=== PATIENT | male | born 1955 | race Caucasian/White ===

== ENCOUNTER 2017-06-14 18:49 | Emergency (ER) | payer BC ==
[~2017-06-14] VITALS: Ht 162.6 cm; Wt 121.5 kg
[2017-06-14 18:55] VITALS: BP 168/75; PULSE 66; RESP 18; TEMP 97.5; O2SAT 97
[2017-06-14] MEDS ORDERED: BENA10TA PO (19:22)
[2017-06-14] MEDS ORDERED: CELE200C PO (19:22)
[2017-06-14] MEDS ORDERED: HYDR-3516 PO (19:22)
[2017-06-14] MEDS ORDERED: AMLO5TAB2 PO (19:22)
[2017-06-14] MEDS ORDERED: TAMS5CAP PO (19:22)
[2017-06-14] MEDS ORDERED: ORAC40CA PO (19:22)
[2017-06-14] MEDS ORDERED: FINA5TAB2 PO (19:22)
--- NOTE | 2017-06-14 19:27 | PD ---
HPI Chief Complaint: Skin Problem Time Seen by Provider: 19:22 Travel History International Travel<30 days: No Contact w/Intl Traveler<30days: No Traveled to known affect area: No History of Present Illness HPI Patient comes in for evaluation of a open wound on the plantar surface of his left foot lateral aspect. Patient states he first noticed it approximately 10 days ago after had soreness sensation around it. Patient has been trying to put antibiotic ointment on it and keep it covered however after flying in from [place] today he felt that it was more swollen and painful. Patient states he goes into a pole on a daily basis for therapy on his back. Patient reports having something similar in the past approximately 10 years ago. Patient denies any diabetes, fevers, or known injury. Patient states that his foot just cracked open. Patient is uncertain of his last tetanus shot. Denies diabetes. PFSH Past Medical History Diabetes: No ?: Not Social History Tobacco Use: No Substance Use: No Allergies-Medications (Allergen,Severity, Reaction): Coded Allergies: cefepime (Verified Allergy, Unknown, 06/14/17) Reported Meds & Prescriptions Reported Meds & Active Scripts Active Clindamycin (Clindamycin HCl) 300 Mg Cap 300 Mg PO Q6H 10 Days Bactrim DS (Sulfamethoxazole-Trimethoprim) 800-160 Mg Tab 1 Tab PO BID Reported Hydrocodone-Acetaminophen 5-325 mg Tab 1 Tab PO Q8HR PRN Benazepril-Hctz 10-12.5 mg Tab (Benazepril/Hydrochlorothiazide) 10 Mg-12.5 Mg Tablet 10-12.5 Mg PO DAILY Oracea (Doxycycline) 40 Mg Cap 40 Mg PO DAILY Celebrex (Celecoxib) 200 Mg Cap 200 Mg PO DAILY Amlodipine (Amlodipine Besylate) 5 Mg Tab 5 Mg PO DAILY Finasteride 5 Mg Tab 5 Mg PO DAILY Do not crush. Flomax (Tamsulosin HCl) 0.4 Mg Cap 0.4 Mg PO HS Review of Systems Except as stated in HPI: all other systems reviewed are Neg Physical Exam Narrative GENERAL: Well-developed, overly nourished, in no acute distress, and non-ill appearing. SKIN: Ulcer noted on the plantar surface of the left foot over the fifth metatarsal. Patient reports tenderness to palpation. There is no crepitus. Minimal erythematous. Afebrile. Without drainage. Neurovascularly intact distally. HEAD: Atraumatic. Normocephalic. EYES: Pupils equal and round. EOMI. No scleral icterus. No injection or drainage. ENT: No nasal bleeding or discharge. Mucous membranes pink and moist. NECK: Trachea midline. Supple. No nuclear rigidity. RESPIRATORY: No accessory muscle use. No respiratory distress. MUSCULOSKELETAL: No obvious deformities. No clubbing. No cyanosis. No edema. Full range of motion. NEUROLOGICAL: Awake and alert. No obvious cranial nerve deficits. Motor grossly within normal limits. Normal speech. PSYCHIATRIC: Appropriate mood and affect; insight and judgment normal. Data Data Last Documented VS Vital Signs Date Time Temp Pulse Resp B/P (MAP) Pulse Ox O2 Delivery O2 Flow Rate FiO2 06/14/17 18:55 97.5 66 18 168/75 (106) 97 Orders Orders Wound Culture And Gram Stain (06/14/17 19:22) Clindamycin Inj (Cleocin Inj) (06/14/17 19:30) Tetanus/Diphtheria Tox Adult (Tetanus/Di (06/14/17 19:30) Foot, Complete ([id number]) (06/14/17 ) Wound Care (06/14/17 20:20) Ed Discharge Order (06/14/17 20:32) MDM Medical Decision Making Medical Screen Exam Complete: Yes Emergency Medical Condition: Yes Differential Diagnosis Open wound, foot ulcer, osteomyelitis, wound infection, foreign body Narrative Course Patient in no obvious distress upon re-evaluation. All pertinent Radiology result(s) discussed with patient. Discussed patient with Dr. Gonzales prior to discharge, who saw and evaluated the patient and is in agreement with plan of care and disposition. Any questions/concerns in reference to patient diagnosis/ condition discussed and clarified prior to patient's discharge. Reinforced sheer importance of close follow up with ecg technician. Instructed patient to return to ED immediately, if symptoms return/worsen. Patient showed understanding of above instructions. Further instructions and recommendations were detailed in discharge paperwork. Patient ambulated without difficulty out of ED at discharge. Diagnosis Primary Impression: Foot ulcer, left Qualified Codes: L97.529 - Non-pressure chronic ulcer of other part of left foot with unspecified severity Referrals: Rory Avila DPM [facility] Patient Instructions: Acute Wound Care (DC), General Instructions Additional Instructions: Follow-up with ecg technician in 2-3 days for reevaluation. Take all medication as prescribed. Keep wound dry and clean as possible using soap and water. Use over -the-counter Neosporin. Follow instructions on the packaging. Do not soak or submerge wound. Return to the emergency department if symptoms get worse. Med/Other Pt SpecificInfo: Prescription(s) given Scripts Clindamycin (Clindamycin) 300 Mg Cap 300 MG PO Q6H for Infection for 10 Days, #40 CAP 0 Refills Prov: Santana Gonzales MD 06/14/17 Sulfamethoxazole-Trimethoprim (Bactrim DS) 800-160 Mg Tab 1 TAB PO BID for Infection, #20 TAB 0 Refills Prov: Santana Gonzales MD 06/14/17 Disposition: 01 DISCHARGE HOME Condition: Stable Joni Solano Jun 14, 2017 19:27
[2017-06-14] MEDS ORDERED: CLINDAMYCIN PHOS 600 MG/4 ML VIAL IM ONE (19:30)
[2017-06-14] MEDS ORDERED: TETANUS/DIPHTHERIA TOXOID ADULT 0.5 ML VIAL IM ONE (19:30)
--- NOTE | 2017-06-14 20:23 | RADRPT ---
EXAM DATE/TIME: 06/14/2017 19:57 [facility] COMPARISON: No previous studies available for comparison. INDICATIONS : Left planter surface foot pain with open wound. MEDICAL HISTORY : Hypertension. Enlarged prostate, Carpal tunnel, Chronic back pain SURGICAL HISTORY : Back surgery, Right foot surgery ENCOUNTER: Initial ACUITY: 1 week PAIN SCORE: 8/10 LOCATION: Left foot FINDINGS: Three view examination of the left foot demonstrates ulceration lateral foot. Remote fracture of the fifth metatarsal proximally. No bony destructive changes are noted. Vascular calcifications present. CONCLUSION: 1. Ulceration overlying the lateral foot. No acute bony abnormality. Juan Antonio Soria MD on June 14, 2017 at 20:20 Board Certified Radiologist. This report was verified electronically.
[2017-06-14] MEDS ORDERED: CLIN300C5 PO (20:29)
[2017-06-14] MEDS ORDERED: BACT800T5 PO (20:29)
== END 2017-06-14 20:56 | disposition home or self-care (01) ==
LOC: PHEFT 18:49
DX: L97.529 Non-pressure chronic ulcer of other part of left foot with unspecified severity (principal); B95.1 Streptococcus, group B, as the cause of diseases classified elsewhere; B96.4 Proteus (mirabilis) (morganii) as the cause of diseases classified elsewhere; Z16.39 Resistance to other specified antimicrobial drug; Z23 Encounter for immunization
CPT/HCPCS: 73630; 86403; 87070; 87077; 87186; 87205; 90471; 90714; 96372

== ENCOUNTER 2017-08-29 20:14 | Inpatient (IN) | payer BC ==
[~2017-08-29] VITALS: Ht 162.6 cm; Wt 122.0 kg
[~2017-08-29 20:14] MED LIST: AMLO5TAB2 PO; BACT800T5 PO; BENA10TA PO; CELE200C PO; CLIN300C5 PO; FINA5TAB2 PO; HYDR-3516 PO; ORAC40CA PO; TAMS5CAP PO
[2017-08-29 20:28] VITALS: BP 146/69; PULSE 108; RESP 20; TEMP 98.9; O2SAT 95
[2017-08-29] MEDS ORDERED: BENA20TA3 PO (21:44)
[2017-08-29] MEDS ORDERED: TETANUS/DIPHTHERIA TOXOID ADULT 0.5 ML VIAL IM ONE (22:00)
--- NOTE | 2017-08-29 22:05 | PD ---
HPI Chief Complaint: Fever Time Seen by Provider: 21:59 Travel History International Travel<30 days: No Contact w/Intl Traveler<30days: No Traveled to known affect area: No History of Present Illness HPI 62-year-old male presents to the emergency department for evaluation of shaking chill just prior to arrival to the emergency department with fever of 102. Patient states that he has a history of recurrent urinary tract infections due to prostate enlargement and multiple back surgeries and at times has to self catheterize himself. Patient denies burning with urination which is his typical indicator that he has a UTI. Patient did not get the flu vaccine but does not report any respiratory illness symptoms. Patient also is being followed by podiatry for a pressure ulcer of the left foot. Patient underwent debridement yesterday. Patient had infected pressure ulcer diagnosed May 2017 and was placed on clindamycin and Bactrim was referred to podiatry and they have him in a walking boot and intermittent episodes of debridement. Patient is currently not on any antibiotic. Patient denies being diabetic. PFSH Past Medical History Narrative Medical Hypertension, BPH, multiple back surgeries, rosacea, left foot cellulitis; occasional alcohol use: Nursing notes reviewed Diabetes: No Diminished Hearing: No Genitourinary: Yes (enlarged prostate) Hypertension: Yes Influenza Vaccination: No Past Surgical History Thoracic Surgery: Yes (multiple back ) Social History Alcohol Use: Yes (3-4 times a wk) Tobacco Use: No Substance Use: No Allergies-Medications (Allergen,Severity, Reaction): Coded Allergies: cefepime (Verified Allergy, Unknown, 08/29/17) Reported Meds & Prescriptions Reported Meds & Active Scripts Active Reported Benazepril-Hydrochlorothiazide 20-12.5 Mg Tab 1 Tab PO DAILY Hydrocodone-Acetaminophen 5-325 mg Tab 1 Tab PO Q8HR PRN Oracea (Doxycycline) 40 Mg Cap 40 Mg PO DAILY Celebrex (Celecoxib) 200 Mg Cap 200 Mg PO DAILY Amlodipine (Amlodipine Besylate) 5 Mg Tab 5 Mg PO DAILY Finasteride 5 Mg Tab 5 Mg PO DAILY Do not crush. Flomax (Tamsulosin HCl) 0.4 Mg Cap 0.4 Mg PO HS Review of Systems Except as stated in HPI: all other systems reviewed are Neg General / Constitutional: Positive: Fever, Chills HENT: No: Headaches, Sore Throat, Congestion, Neck Pain Cardiovascular: No: Chest Pain or Discomfort Respiratory: No: Cough, Shortness of Breath Gastrointestinal: No: Nausea, Vomiting, Diarrhea, Abdominal Pain Genitourinary: No: Frequency, Dysuria Musculoskeletal: Positive: Pain, No: Myalgias, Arthralgias Skin: Positive Other, No Rash Neurologic: Positive: Weakness, Dizziness, No: Syncope, Focal Abnormalities, Coordination Problem Psychiatric: No: Anxiety Endocrine: No: Heat Intolerance, Cold Intolerance Hematologic/Lymphatic: No: Easy Bruising Physical Exam Narrative GENERAL: Well-developed well-nourished morbidly obese male no acute distress no respiratory distress SKIN: Warm and dry. HEAD: Normocephalic. EYES: No scleral icterus. No injection or drainage. NECK: Supple, trachea midline. No JVD or lymphadenopathy. CARDIOVASCULAR: Increased regular rate and rhythm without murmurs, gallops, or rubs. RESPIRATORY: Breath sounds equal bilaterally. No accessory muscle use. GASTROINTESTINAL: Abdomen soft, non-tender, nondistended. MUSCULOSKELETAL: No cyanosis, or edema. Plantar surface left foot lateral aspect reveals a 1 cm x 1 cm area of macerated tissue with central ulcer scant serous drainage no purulent drainage tender to palpation erythema capillary refill brisk at less than 2 seconds per digit dorsalis pedis pulse 1+ to palpation. No ascending erythema or left groin lymphadenopathy. BACK: Nontender without obvious deformity. No CVA tenderness. Data Data Last Documented VS Vital Signs Date Time Temp Pulse Resp B/P (MAP) Pulse Ox O2 Delivery O2 Flow Rate FiO2 08/29/17 22:45 87 18 120/68 (85) 97 Room Air 08/29/17 20:28 98.9 Orders Orders Basic Metabolic Panel (Bmp) (08/29/17 21:59) Complete Blood Count With Diff (08/29/17 21:59) Blood Culture (08/29/17 21:59) Wound Culture And Gram Stain (08/29/17 21:59) Iv Access Insert/Monitor (08/29/17 21:59) Tetanus/Diphtheria Tox Adult (Tetanus/Di (08/29/17 22:00) Lactic Acid (08/29/17 21:59) Influenzae A/B Antigen (08/29/17 21:59) Foot, Complete ([id number]) (08/29/17 ) Chest, Single Ap (08/29/17 ) Urinalysis - C+S If Indicated (08/29/17 23:36) Oseltamivir (Tamiflu) (08/29/17 23:45) Sodium Chlor 0.9% 1000 Ml Inj (Ns 1000 M (08/29/17 23:45) Vancomycin Inj (Vancomycin Inj) (08/29/17 23:45) Admit To Inpatient (08/29/17 ) Vital Signs (Adult) Q4H (08/29/17 23:53) Activity Oob With Assistance (08/29/17 23:53) Intake + Output MIRELA.QSHIFT (08/29/17 23:53) Diet Heart Healthy (08/30/17 Breakfast) Sodium Chlor 0.45% 1000 Ml Inj (1/2 Ns 1 (08/29/17 23:53) Sodium Chloride 0.9% Flush (Ns Flush) (08/30/17 00:00) Sodium Chloride 0.9% Flush (Ns Flush) (08/30/17 09:00) Acetaminophen (Tylenol) (08/30/17 00:00) Ondansetron Inj (Zofran Inj) (08/30/17 00:00) Temazepam (Restoril) (08/30/17 00:00) Basic Metabolic Panel (Bmp) (08/30/17 06:00) Complete Blood Count With Diff (08/30/17 06:00) Scd Bilateral/Knee High MIRELA.BID (08/29/17 23:53) Naloxone Inj (Narcan Inj) (08/30/17 00:00) Magnesium Hydroxide Liq (Milk Of Magnesi (08/30/17 00:00) Sennosides (Senokot) (08/30/17 00:00) Bisacodyl Supp (Dulcolax Supp) (08/30/17 00:00) Lactulose Liq (Lactulose Liq) (08/30/17 00:00) Inpatient Certification (08/29/17 ) Vancomycin Consult Pharmacy (Vancomycin (08/30/17 00:00) Vancomycin Inj (Vancomycin Inj) (08/30/17 09:00) Admit Order (Ed Use Only) (08/29/17 ) Labs Laboratory Tests Test 08/29/17 22:07 White Blood Count 21.9 TH/MM3 Red Blood Count 4.67 MIL/MM3 Hemoglobin 13.9 GM/DL Hematocrit 40.9 % Mean Corpuscular Volume 87.4 FL Mean Corpuscular Hemoglobin 29.6 PG Mean Corpuscular Hemoglobin Concent 33.9 % Red Cell Distribution Width 12.8 % Platelet Count 168 TH/MM3 Mean Platelet Volume 9.3 FL Neutrophils (%) (Auto) 88.9 % Lymphocytes (%) (Auto) 2.2 % Monocytes (%) (Auto) 5.7 % Eosinophils (%) (Auto) 0.9 % Basophils (%) (Auto) 2.3 % Neutrophils # (Auto) 19.5 TH/MM3 Lymphocytes # (Auto) 0.5 TH/MM3 Monocytes # (Auto) 1.2 TH/MM3 Eosinophils # (Auto) 0.2 TH/MM3 Basophils # (Auto) 0.5 TH/MM3 CBC Comment DIFF FINAL Differential Comment Blood Urea Nitrogen 27 MG/DL Creatinine 1.50 MG/DL Random Glucose 165 MG/DL Calcium Level 9.2 MG/DL Sodium Level 134 MEQ/L Potassium Level 4.1 MEQ/L Chloride Level 101 MEQ/L Carbon Dioxide Level 25.7 MEQ/L Anion Gap 7 MEQ/L Estimat Glomerular Filtration Rate 47 ML/MIN Lactic Acid Level 0.9 mmol/L MDM Medical Decision Making Medical Screen Exam Complete: Yes Emergency Medical Condition: Yes Medical Record Reviewed: Yes Interpretation(s) Influenza a/b ag: positive 'A' Lactic acid: 0.9, not elevated Last Impressions Foot X-Ray 08/29/17 0000 Signed Impressions: Service Date/Time: August 22:12 - CONCLUSION: The configuration of the deformed proximal 5th metatarsal bone adjacent to soft tissue ulceration is unchanged from prior conventional radiograph in May 2017. Rod Padilla MD Chest X-Ray 08/29/17 0000 Signed Impressions: Service Date/Time: August 22:12 - CONCLUSION: No infiltrates seen. Rod Padilla MD CBC & BMP Diagram 08/29/17 22:07 Calcium Level 9.2 Vital Signs Date Time Temp Pulse Resp B/P (MAP) Pulse Ox O2 Delivery O2 Flow Rate FiO2 08/29/17 22:45 87 18 120/68 (85) 97 Room Air 08/29/17 20:28 98.9 108 20 146/69 (94) 95 Room Air Differential Diagnosis Cellulitis, osteomyelitis, sepsis, UTI, abscess, pneumonia; no necrotizing fasciitis Narrative Course IV access obtained specimens collected and sent for resulting Patient identified to have leukocytosis with left shift lactic acid is in normal range; patient meets SIRS criteria by heart rate and leukocytosis and by report of fever 10 2F Patient with positive flu test patient meets sepsis criteria based on source as well as leukocytosis and tachycardia imaging of the left foot reveals no acute bony abnormality possible cellulitis of foot versus wound infection will give patient vancomycin and 1 L normal saline; UA pending Plan admit to [facility] service for sepsis, influenza --patient agreeable with plan Sepsis Criteria SIRS Criteria (2 or more): Heart rate over 90, WBC > 88919, < 4000 or > 10% bands Sepsis Criteria (SIRS+source): Infect source susp/known (influenza A; left foot ) Physician Communication Physician Communication call placed to [facility] service --discussed with Dr Singh Diagnosis Primary Impression: Influenza A Additional Impressions: Sepsis Qualified Codes: A41.9 - Sepsis, unspecified organism Infection of left foot Renal insufficiency Admitting Information Admitting Physician Requests: Observation Courtney Salguero MD Aug 29, 2017 22:05
[2017-08-29 22:23] LABS: AUTOMATED NEUTROPHIL # 19.5 TH/MM3 (1.8-7.7); BASOPHIL # 0.5 TH/MM3 (0-0.2); BASOPHIL % 2.3 % (0.0-2.0); EOSINOPHIL # 0.2 TH/MM3 (0-0.4); EOSINOPHIL % 0.9 % (0.0-4.0); HEMATOCRIT 40.9 % (39.0-51.0); HEMOGLOBIN 13.9 GM/DL (13.0-17.0); LYMPH % 2.2 % (9.0-44.0); LYMPHOCYTE # 0.5 TH/MM3 (1.0-4.8); MEAN CELL VOLUME 87.4 FL (80.0-100.0); MEAN CORPUSCULAR HEMOGLOBIN 29.6 PG (27.0-34.0); MEAN CORPUSCULAR HGB CONC 33.9 % (32.0-36.0); MEAN PLATELET VOLUME 9.3 FL (7.0-11.0); MONO % 5.7 % (0.0-8.0); MONOCYTE # 1.2 TH/MM3 (0-0.9); NEUT % 88.9 % (16.0-70.0); PLATELET COUNT 168 TH/MM3 (150-450); RED BLOOD COUNT 4.67 MIL/MM3 (4.50-5.90); RED CELL DISTRIBUTION WIDTH 12.8 % (11.6-17.2); WHITE BLOOD COUNT 21.9 TH/MM3 (4.0-11.0)
[2017-08-29 22:36] LABS: CALCIUM 9.2 MG/DL (8.5-10.1)
[2017-08-29 22:37] LABS: BICARBONATE 25.7 MEQ/L (21.0-32.0)
[2017-08-29 22:40] LABS: CREATININE 1.5 MG/DL (0.60-1.30)
[2017-08-29 22:45] VITALS: BP 120/68; PULSE 87; RESP 18; O2SAT 97
--- NOTE | 2017-08-29 23:04 | RADRPT ---
EXAM DATE/TIME: 08/29/2017 22:12 [facility] COMPARISON: FOOT LEFT COMPLETE ([id number]), June 14, 2017, 19:57. INDICATIONS : Patient states he has a "pressure" ulcer on his left foot that is painful. MEDICAL HISTORY : Hypertension. Enlarged prostate, Carpal tunnel, Chronic back pain SURGICAL HISTORY : Back surgery, Right foot surgery ENCOUNTER: Initial ACUITY: 4 - 6 months PAIN SCORE: 6/10 LOCATION: Left foot FINDINGS: Focal lucency in the soft tissues the proximal lateral 5th digit corresponds to an area of ulceration seen on prior compression radiograph of May 2017. No radiopaque foreign bodies. Deformity of the proximal 5th metatarsal bone with cortical thickening and bowing of the proximal cortex is simila r to prior examination. Focal periosteal thickening of the lateral cortex of the distal metatarsus i s also unchanged from prior. Moderate-sized retrocalcaneal spur stop flexion deformity of the phalan ges similar to prior. CONCLUSION: The configuration of the deformed proximal 5th metatarsal bone adjacent to soft tissue ulceration is unchanged from prior conventional radiograph in May 2017. Rod Padilla MD on August 29, 2017 at 23:00 Board Certified Radiologist. This report was verified electronically.
--- NOTE | 2017-08-29 23:05 | RADRPT ---
EXAM DATE/TIME: 08/29/2017 22:12 [facility] COMPARISON: No previous studies available for comparison. INDICATIONS : Fever and shortness of breath. MEDICAL HISTORY : Hypertension. Enlarged prostate, Carpal tunnel, Chronic back pain. SURGICAL HISTORY : Back surgery, Right foot surgery ENCOUNTER: Initial ACUITY: 1 day PAIN SCORE: 0/10 LOCATION: Bilateral chest FINDINGS: A single view of the chest demonstrates the lungs to be symmetrically aerated without evidence of mas s, infiltrate or effusion. The heart is normal size. Mild tortuosity descending thoracic aorta.. O sseous structures are intact. CONCLUSION: No infiltrates seen. Rod Padilla MD on August 29, 2017 at 23:04 Board Certified Radiologist. This report was verified electronically.
[2017-08-29] MEDS ORDERED: VANCOMYCIN INJ 1,000 MG in SODIUM CHLOR 0.9% 250 ML INJ 250 ML IV ONE (23:45)
[2017-08-29] MEDS ORDERED: SODIUM CHLOR 0.9% 1000 ML INJ 1,000 ML IV ONE (23:45)
[2017-08-29] MEDS ORDERED: OSELTAMIVIR PHOSPHATE 75 MG CAP PO ONE (23:45)
[2017-08-29 23:48] LABS: BILIRUBIN, URINE NEG (NEG); BLOOD, URINE NEG (NEG); GLUCOSE,URINE NEG (NEG); KETONE, URINE NEG (NEG); NITRITE,URINE POS (NEG); PH, URINE 5.5 (5.0-8.5); URINE COLOR YELLOW (YELLW/STRAW); URINE LEUKOCYTE ESTERASE SMALL (NEG)
[2017-08-29] MEDS ORDERED: SODIUM CHLOR 0.45% 1000 ML INJ 1,000 ML IV SCH (23:53)
[2017-08-29 23:58] LABS: RBC, URINE 0-2 /hpf (0-3)
[2017-08-29 23:59] LABS: BACTERIA, URINE MOD /hpf; SQUAMOUS EPITHELIAL CELL URINE 0-5 /hpf (0-5)
[2017-08-30] VITALS (8 sets, daily range): BP systolic 112–141; BP diastolic 59–71; PULSE 62–87; RESP 18–20; TEMP 96.7–98.9; O2SAT 95–100
[2017-08-30] MEDS ORDERED: ONDANSETRON HCL 4 MG/2 ML VIAL IVP PRN
[2017-08-30] MEDS ORDERED: SENNOSIDES 8.6 MG TAB PO PRN
[2017-08-30] MEDS ORDERED: Vancomycin Consult Pharmacy 1 EA OTHER SCH
[2017-08-30] MEDS ORDERED: SODIUM CHLORIDE 0.9% FLUSH 10 ML FLUSH IV FLUSH PRN
[2017-08-30] MEDS ORDERED: TEMAZEPAM 15 MG CAP PO PRN
[2017-08-30] MEDS ORDERED: MAGNESIUM HYDROXIDE SUSP 30 ML CUP PO PRN
[2017-08-30] MEDS ORDERED: BISACODYL 10 MG SUPP RECTAL PRN
[2017-08-30] MEDS ORDERED: LACTULOSE SYRUP 20 GM/30 ML CUP PO PRN
[2017-08-30] MEDS ORDERED: VANCOMYCIN INJ 1,000 MG in SODIUM CHLOR 0.9% 250 ML INJ 250 ML IV SCH ×2 (00:30→01:00)
[2017-08-30] MEDS ORDERED: LEVOFLOXACIN 500 MG TAB PO ONE (00:45)
[2017-08-30 06:44] LABS: AUTOMATED NEUTROPHIL # 15.6 TH/MM3 (1.8-7.7); BASOPHIL % 0.2 % (0.0-2.0); EOSINOPHIL # 0.1 TH/MM3 (0-0.4); EOSINOPHIL % 0.3 % (0.0-4.0); HEMATOCRIT 36.8 % (39.0-51.0); HEMOGLOBIN 12.8 GM/DL (13.0-17.0); LYMPH % 1.5 % (9.0-44.0); LYMPHOCYTE # 0.3 TH/MM3 (1.0-4.8); MEAN CORPUSCULAR HEMOGLOBIN 30.7 PG (27.0-34.0); MEAN CORPUSCULAR HGB CONC 34.8 % (32.0-36.0); MEAN PLATELET VOLUME 9.2 FL (7.0-11.0); MONO % 4.3 % (0.0-8.0); MONOCYTE # 0.7 TH/MM3 (0-0.9); NEUT % 93.7 % (16.0-70.0); PLATELET COUNT 128 TH/MM3 (150-450); RED BLOOD COUNT 4.18 MIL/MM3 (4.50-5.90); RED CELL DISTRIBUTION WIDTH 12.8 % (11.6-17.2); WHITE BLOOD COUNT 16.7 TH/MM3 (4.0-11.0)
[2017-08-30 06:48] LABS: BICARBONATE 26.4 MEQ/L (21.0-32.0); CALCIUM 8.7 MG/DL (8.5-10.1)
[2017-08-30 06:51] LABS: CREATININE 1.4 MG/DL (0.60-1.30)
--- NOTE | 2017-08-30 08:58 | HHI.HP ---
[facility] Service [facility] Primary Care Physician Non-Staff Admission Diagnosis sepsis; influenza a; reanl insufficiency; L foot cellulitis Diagnoses: Chief Complaint: Chills fever Travel History International Travel<30 Days: No Contact w/Intl Traveler <30 Da: No Traveled to Known Affected Are: No History of Present Illness 62-year-old white male with a history of hypertension, BPH, chronic left foot pressure ulcer in which he independently does ambulate with a cane who presents to the emergency room after having 102 fever and chills overnight along with generalized muscle aches. He also reports having a large prostate along with history of multiple back surgery requiring self-catheterization in the morning and at night. He denies any dysuria or increased urinary dribbling. He does report early sinus congestion with no symptoms of cough. He also reports having left chronic callus debrided 2 days ago with local online media director but no active drainage or changes over the area. He denies any recent sick contacts. Review of Systems Constitutional: COMPLAINS OF: Fever, Chills, DENIES: Fatigue, Change in appetite Endocrine: DENIES: Heat/cold intolerance Eyes: DENIES: Blurred vision, Eye pain, Vision loss Ears, nose, mouth, throat: COMPLAINS OF: Nasal discharge, Running Nose, DENIES : Hearing loss, Throat pain, Ear Pain, Sinus Pain Respiratory: DENIES: Cough, Shortness of breath Cardiovascular: DENIES: Chest pain, Palpitations, Dyspnea on Exertion, Lower Extremity Edema Gastrointestinal: DENIES: Abdominal pain, Black stools, Bloody stools, Constipation, Diarrhea, Nausea, Vomiting Genitourinary: COMPLAINS OF: Urinary incontinence (Chronic and does self catheterizations) Musculoskeletal: COMPLAINS OF: Joint pain, Muscle aches, Back pain, DENIES: Stiffness Integumentary: DENIES: Rash Hematologic/lymphatic: DENIES: Bruising, Lymphadenopathy Immunologic/allergic: DENIES: Eczema Neurologic: DENIES: Headache, Localized weakness, Paresthesias Psychiatric: DENIES: Anxiety, Depression, Suicidal Ideation Past Family Social History Past Medical History Hypertension BPH Rosacea chronic left plantar pressure ulcer, callus Left foot drop secondary to previous multiple laminectomies Past Surgical History Multiple laminectomies Right foot surgery Bilateral carpal tunnel surgery Reported Medications Benazepril-Hydrochlorothiazide 20-12.5 Mg Tab 1 Tab PO DAILY Hydrocodone-Acetaminophen 5-325 mg Tab 1 Tab PO Q8HR PRN Oracea (Doxycycline) 40 Mg Cap 40 Mg PO DAILY Celebrex (Celecoxib) 200 Mg Cap 200 Mg PO DAILY Amlodipine (Amlodipine Besylate) 5 Mg Tab 5 Mg PO DAILY Finasteride 5 Mg Tab 5 Mg PO DAILY Do not crush. Flomax (Tamsulosin HCl) 0.4 Mg Cap 0.4 Mg PO HS Allergies: Coded Allergies: cefepime (Verified Allergy, Unknown, 08/29/17) Family History Mother - diabetes mellitus Social History Does not smoke cigarettes Drinks beer 2-3 times a week Physical Exam Vital Signs Vital Signs Date Time Temp Pulse Resp B/P (MAP) Pulse Ox O2 Delivery O2 Flow Rate FiO2 08/30/17 08:00 98.9 75 20 141/65 (90) 95 08/30/17 04:00 98.0 87 20 116/59 (78) 99 08/30/17 01:30 97.0 79 20 112/68 (83) 98 08/30/17 01:10 08/30/17 00:50 98.7 76 18 116/60 (78) 99 Room Air 08/30/17 00:05 84 18 129/71 (90) 97 Room Air 08/29/17 22:45 87 18 120/68 (85) 97 Room Air 08/29/17 20:28 98.9 108 20 146/69 (94) 95 Room Air Physical Exam GENERAL: This is a well-nourished, well-developed patient, in no apparent distress. SKIN: No rashes, ecchymoses or lesions. Cool and dry. HEAD: Atraumatic. Normocephalic. No temporal or scalp tenderness. EYES: Pupils equal round and reactive. Extraocular motions intact. No scleral icterus. No injection or drainage. ENT: Nose without bleeding, purulent drainage or septal hematoma. Throat without erythema, tonsillar hypertrophy or exudate. Uvula midline. Airway patent. NECK: Trachea midline. No JVD or lymphadenopathy. Supple, nontender, no meningeal signs. CARDIOVASCULAR: Regular rate and rhythm RESPIRATORY: Clear to auscultation. Breath sounds equal bilaterally. No wheezes , rales, or rhonchi. GASTROINTESTINAL: Abdomen soft, non-tender, nondistended. No hepato-splenomegaly , or palpable masses. No guarding. Normoactive bowel sounds. MUSCULOSKELETAL: Extremities without clubbing, cyanosis, or edema. Left foot plantar with callus 2 cm x 3 cm clean ulcer with no redness and no active drainage. Surgical scarring of the lumbar area NEUROLOGICAL: Awake and alert to person, place, time, and situation. Cranial nerves II through XII intact. Motor and sensory grossly within normal limits. Five out of 5 muscle strength in all muscle groups. Normal speech. Laboratory Microbiology Date/Time Source Procedure Growth Status 08/29/17 22:16 Blood Peripheral Aerobic Blood Culture Pending Received 08/29/17 22:16 Blood Peripheral Anaerobic Blood Culture Pending Received 08/29/17 22:07 Nasal Washing Influenza Types A,B Antigen (ROBI) - Final Positive For Flu A Antigen Complete 08/29/17 23:40 Urine Clean Catch Urine Culture Pending Received 08/29/17 22:07 Wound Foot Gram Stain Pending Received 08/29/17 22:07 Wound Foot Wound Culture Pending Received Laboratory Tests Test 08/29/17 22:07 08/29/17 23:40 08/30/17 05:55 White Blood Count 21.9 16.7 Red Blood Count 4.67 4.18 Hemoglobin 13.9 12.8 Hematocrit 40.9 36.8 Mean Corpuscular Volume 87.4 88.0 Mean Corpuscular Hemoglobin 29.6 30.7 Mean Corpuscular Hemoglobin Concent 33.9 34.8 Red Cell Distribution Width 12.8 12.8 Platelet Count 168 128 Mean Platelet Volume 9.3 9.2 Neutrophils (%) (Auto) 88.9 93.7 Lymphocytes (%) (Auto) 2.2 1.5 Monocytes (%) (Auto) 5.7 4.3 Eosinophils (%) (Auto) 0.9 0.3 Basophils (%) (Auto) 2.3 0.2 Neutrophils # (Auto) 19.5 15.6 Lymphocytes # (Auto) 0.5 0.3 Monocytes # (Auto) 1.2 0.7 Eosinophils # (Auto) 0.2 0.1 Basophils # (Auto) 0.5 0.0 CBC Comment DIFF FINAL AUTO DIFF Differential Comment AUTO DIFF CONFIRMED Blood Urea Nitrogen 27 25 Creatinine 1.50 1.40 Random Glucose 165 143 Calcium Level 9.2 8.7 Sodium Level 134 138 Potassium Level 4.1 3.7 Chloride Level 101 105 Carbon Dioxide Level 25.7 26.4 Anion Gap 7 7 Estimat Glomerular Filtration Rate 47 51 Lactic Acid Level 0.9 Urine Color YELLOW Urine Turbidity CLEAR Urine pH 5.5 Urine Specific [place] LESS/EQUAL 1.005 Urine Protein NEG Urine Glucose (UA) NEG Urine Ketones NEG Urine Occult Blood NEG Urine Nitrite POS Urine Bilirubin NEG Urine Urobilinogen 0.2 Urine Leukocyte Esterase SMALL Urine RBC 0-2 Urine WBC 9-14 Urine Squamous Epithelial Cells 0-5 Urine Bacteria MOD Microscopic Urinalysis Comment CULTURE INDICATED Date/Time Source Procedure Growth Status 08/29/17 22:16 Blood Peripheral Aerobic Blood Culture Pending Received 08/29/17 22:16 Blood Peripheral Anaerobic Blood Culture Pending Received 08/29/17 22:07 Nasal Washing Influenza Types A,B Antigen (ROBI) - Final Positive For Flu A Antigen Complete 08/29/17 23:40 Urine Clean Catch Urine Culture Pending Received 08/29/17 22:07 Wound Foot Gram Stain Pending Received 08/29/17 22:07 Wound Foot Wound Culture Pending Received Result Diagram: 08/30/17 0555 08/30/17 0555 Imaging Last Impressions Foot X-Ray 08/29/17 0000 Signed Impressions: Service Date/Time: August 22:12 - CONCLUSION: The configuration of the deformed proximal 5th metatarsal bone adjacent to soft tissue ulceration is unchanged from prior conventional radiograph in May 2017. Rod Padilla MD Chest X-Ray 08/29/17 0000 Signed Impressions: Service Date/Time: August 22:12 - CONCLUSION: No infiltrates seen. Rod Padilla MD Caprini VTE Risk Assessment Caprini VTE Risk Assessment: Mod/High Risk (score >= 2) Caprini Risk Assessment Model Point Value = 1 Point Value = 2 Point Value = 3 Point Value = 5 Age 41-60 Minor surgery BMI > 25 kg/m2 Swollen legs Varicose veins or History of unexplained or recurrent spontaneous Oral contraceptives or hormone replacement Sepsis (< 1 month) Serious lung disease, including pneumonia (< 1 month) Abnormal pulmonary function Acute myocardial infarction Congestive heart failure (< 1 month) History of inflammatory bowel disease Medical patient at bed rest Age 61-74 Arthroscopic surgery Major open surgery (> 45 min) Laparoscopic surgery (> 45 min) Malignancy Confined to bed (> 72 hours) Immobilizing plaster cast Central venous access Age >= 75 History of VTE Family history of VTE Factor V Leiden Prothrombin [id number] Lupus anticoagulant Anticardiolipin antibodies Elevated serum homocysteine Heparin-induced thrombocytopenia Other congenital or acquired thrombophilia Stroke (< 1 month) Elective arthroplasty Hip, pelvis, or leg fracture Acute spinal cord injury (< 1 month) Prophylaxis Regimen Total Risk Factor Score Risk Level Prophylaxis Regimen 0-1 Low Early ambulation 2 Moderate Order ONE of the following: *Sequential Compression Device (SCD) *Heparin 5000 units SQ BID 3-4 Higher Order ONE of the following medications: *Heparin 5000 units SQ TID *Enoxaparin/Lovenox 40 mg SQ daily (WT < 150 kg, CrCl > 30 mL/min) *Enoxaparin/Lovenox 30 mg SQ daily (WT < 150 kg, CrCl > 10-29 mL/min) *Enoxaparin/Lovenox 30 mg SQ BID (WT < 150 kg, CrCl > 30 mL/min) AND/OR *Sequential Compression Device (SCD) 5 or more Highest Order ONE of the following medications: *Heparin 5000 units SQ TID (Preferred with Epidurals) *Enoxaparin/Lovenox 40 mg SQ daily (WT < 150 kg, CrCl > 30 mL/min) *Enoxaparin/Lovenox 30 mg SQ daily (WT < 150 kg, CrCl > 10-29 mL/min) *Enoxaparin/Lovenox 30 mg SQ BID (WT < 150 kg, CrCl > 30 mL/min) AND *Sequential Compression Device (SCD) Assessment and Plan Problem List: (1) Sepsis ICD Code: A41.9 - Sepsis, unspecified organism Status: Acute (2) CKD (chronic kidney disease), stage III ICD Code: N18.3 - Chronic kidney disease, stage 3 (moderate) Status: Chronic (3) Influenza A ICD Code: J10.1 - Influenza due to other identified influenza virus with other respiratory manifestations Status: Acute Assessment and Plan 1. Sepsis with presenting tachycardia and leukocytosis on admission likely etiology underlying influenza, rule out underlying urinary tract infection. Evaluation of his chronic left pressure ulcer showed no active drainage or any signs of infection. Continue with Tamiflu and Levaquin. Continue IV fluid hydration and supportive care. Follow up with urine and blood cultures. 2. Leukocytosis on admission - trending down overnight with supportive care antibiotics. 3. Chronic kidney disease stage III- chronic and stable; avoid nephrotoxins. 4. Influenza - Tamiflu 5. History of urinary retention with daily self-catheterization which puts him at risk for urinary tract infection and continue home Flomax. Follow-up with urine cultures. 6. DVT prophylaxis Lovenox. Physician Certification 2 Midnight Certification Type: Admission for Inpatient Services Order for Inpatient Services The services are ordered in accordance with Medicare regulations or non- Medicare payer requirements, as applicable. In the case of services not specified as inpatient-only, they are appropriately provided as inpatient services in accordance with the 2-midnight benchmark. Estimated LOS (days): 2 days is the estimated time the patient will need to remain in the hospital, assuming treatment plan goals are met and no additional complications. Post-Hospital Plan: Home Problem Qualifiers (1) Sepsis: Qualified Codes: A41.9 - Sepsis, unspecified organism Cherelle Gutierrez MD Aug 30, 2017 08:58
[2017-08-30] MEDS ORDERED: NALOXONE HCL 0.4 MG/ML AMP IV PUSH PRN ×2 (09:00)
[2017-08-30] MEDS ORDERED: ACETAMINOPHEN/HYDROcodone 325 MG/5 MG TAB PO PRN (09:00)
[2017-08-30] MEDS ORDERED: ACETAMINOPHEN 325 MG TAB PO PRN ×2 (09:00)
[2017-08-30] MEDS ORDERED: DOXYCYCLINE PO SCH (09:15)
[2017-08-30] MEDS: ACETAMINOPHEN/HYDROcodone 325 MG/10 MG TAB PO PRN (11:59)
[2017-08-30] MEDS: ENOXAPARIN SODIUM 40 MG/0.4 ML SYRINGE SQ SCH (11:59)
[2017-08-30] MEDS: SODIUM CHLORIDE 0.9% FLUSH 10 ML FLUSH IV FLUSH SCH ×2 (12:04→20:32)
[2017-08-30] MEDS: CELECOXIB 200 MG CAP PO SCH (12:08)
[2017-08-30] MEDS: FINASTERIDE 5 MG TAB PO SCH (12:08)
[2017-08-30] MEDS: amLODIPine BESYLATE 5 MG TAB PO SCH (12:08)
[2017-08-30] MEDS: OSELTAMIVIR PHOSPHATE 75 MG CAP PO SCH ×2 (12:09→20:31)
[2017-08-30] MEDS ORDERED: TAMSULOSIN HCL 0.4 MG CAP PO SCH (21:00)
[2017-08-31] VITALS: BP 118/62; PULSE 66; RESP 20; TEMP 97.4; O2SAT 98
[2017-08-31] MEDS ORDERED: VANCOMYCIN INJ 2,100 MG in SODIUM CHLORID 0.9% 500 ML INJ 500 ML IV SCH ×2
[2017-08-31] MEDS: ACETAMINOPHEN/HYDROcodone 325 MG/10 MG TAB PO PRN ×2 (03:30→08:50)
[2017-08-31 07:28] LABS: AUTOMATED NEUTROPHIL # 6.1 TH/MM3 (1.8-7.7); BASOPHIL % 0.3 % (0.0-2.0); EOSINOPHIL # 0.3 TH/MM3 (0-0.4); EOSINOPHIL % 4.5 % (0.0-4.0); HEMATOCRIT 36.2 % (39.0-51.0); HEMOGLOBIN 12.6 GM/DL (13.0-17.0); LYMPH % 7.2 % (9.0-44.0); LYMPHOCYTE # 0.5 TH/MM3 (1.0-4.8); MEAN CELL VOLUME 89.6 FL (80.0-100.0); MEAN CORPUSCULAR HEMOGLOBIN 31.1 PG (27.0-34.0); MEAN CORPUSCULAR HGB CONC 34.7 % (32.0-36.0); MEAN PLATELET VOLUME 9.1 FL (7.0-11.0); MONOCYTE # 0.5 TH/MM3 (0-0.9); PLATELET COUNT 131 TH/MM3 (150-450); RED BLOOD COUNT 4.04 MIL/MM3 (4.50-5.90); RED CELL DISTRIBUTION WIDTH 13.8 % (11.6-17.2); WHITE BLOOD COUNT 7.4 TH/MM3 (4.0-11.0)
[2017-08-31 08:01] LABS: CREATININE 1.2 MG/DL (0.60-1.30)
[2017-08-31] MEDS: SODIUM CHLORIDE 0.9% FLUSH 10 ML FLUSH IV FLUSH SCH (08:49)
[2017-08-31] MEDS: ENOXAPARIN SODIUM 40 MG/0.4 ML SYRINGE SQ SCH (08:49)
[2017-08-31] MEDS: amLODIPine BESYLATE 5 MG TAB PO SCH (08:50)
[2017-08-31] MEDS: CELECOXIB 200 MG CAP PO SCH (08:50)
[2017-08-31] MEDS: FINASTERIDE 5 MG TAB PO SCH (08:50)
[2017-08-31] MEDS ORDERED: LEVOFLOXACIN 500 MG TAB PO SCH (09:00)
[2017-08-31] MEDS: OSELTAMIVIR PHOSPHATE 75 MG CAP PO SCH (09:00)
[2017-08-31 09:05] VITALS: BP 135/79; PULSE 85; RESP 18; TEMP 96.9; O2SAT 97
--- NOTE | 2017-08-31 10:01 | HHI.DS ---
Discharge Summary Admission Date Aug 29, 2017 at 23:55 Discharge Date: Aug 31, 2017 Admitting Diagnosis sepsis; influenza a; reanl insufficiency; L foot cellulitis (1) Sepsis ICD Code: A41.9 - Sepsis, unspecified organism Status: Acute (2) CKD (chronic kidney disease), stage III ICD Code: N18.3 - Chronic kidney disease, stage 3 (moderate) Status: Chronic (3) Influenza A ICD Code: J10.1 - Influenza due to other identified influenza virus with other respiratory manifestations Status: Acute (4) Urinary tract infection ICD Code: N39.0 - Urinary tract infection, site not specified Procedures None Brief History - From Admission 62-year-old white male with a history of hypertension, BPH, chronic left foot pressure ulcer in which he independently does ambulate with a cane who presents to the emergency room after having 102 fever and chills overnight along with generalized muscle aches. He also reports having a large prostate along with history of multiple back surgery requiring self-catheterization in the morning and at night. He denies any dysuria or increased urinary dribbling. He does report early sinus congestion with no symptoms of cough. He also reports having left chronic callus debrided 2 days ago with local franchise field consultant but no active drainage or changes over the area. He denies any recent sick contacts. CBC/BMP: 08/31/17 0650 08/31/17 0650 Significant Findings Laboratory Tests Test 08/29/17 22:07 08/29/17 23:40 08/30/17 05:55 08/31/17 06:50 White Blood Count 21.9 TH/MM3 (4.0-11.0) 16.7 TH/MM3 (4.0-11.0) Neutrophils (%) (Auto) 88.9 % (16.0-70.0) 93.7 % (16.0-70.0) 81.0 % (16.0-70.0) Lymphocytes (%) (Auto) 2.2 % (9.0-44.0) 1.5 % (9.0-44.0) 7.2 % (9.0-44.0) Basophils (%) (Auto) 2.3 % (0.0-2.0) Neutrophils # (Auto) 19.5 TH/MM3 (1.8-7.7) 15.6 TH/MM3 (1.8-7.7) Lymphocytes # (Auto) 0.5 TH/MM3 (1.0-4.8) 0.3 TH/MM3 (1.0-4.8) 0.5 TH/MM3 (1.0-4.8) Monocytes # (Auto) 1.2 TH/MM3 (0-0.9) Basophils # (Auto) 0.5 TH/MM3 (0-0.2) Blood Urea Nitrogen 27 MG/DL (7-18) 25 MG/DL (7-18) Creatinine 1.50 MG/DL (0.60-1.30) 1.40 MG/DL (0.60-1.30) Random Glucose 165 MG/DL (74-106) 143 MG/DL (74-106) Sodium Level 134 MEQ/L (136-145) Estimat Glomerular Filtration Rate 47 ML/MIN (>89) 51 ML/MIN (>89) 61 ML/MIN (>89) Urine Nitrite POS (NEG) Urine Leukocyte Esterase SMALL (NEG) Urine WBC 9-14 /hpf (0-5) Urine Bacteria MOD /hpf (NONE) Red Blood Count 4.18 MIL/MM3 (4.50-5.90) 4.04 MIL/MM3 (4.50-5.90) Hemoglobin 12.8 GM/DL (13.0-17.0) 12.6 GM/DL (13.0-17.0) Hematocrit 36.8 % (39.0-51.0) 36.2 % (39.0-51.0) Platelet Count 128 TH/MM3 (150-450) 131 TH/MM3 (150-450) Eosinophils (%) (Auto) 4.5 % (0.0-4.0) Imaging Last Impressions Foot X-Ray 08/29/17 0000 Signed Impressions: Service Date/Time: August 22:12 - CONCLUSION: The configuration of the deformed proximal 5th metatarsal bone adjacent to soft tissue ulceration is unchanged from prior conventional radiograph in May 2017. Rod Padilla MD Chest X-Ray 08/29/17 0000 Signed Impressions: Service Date/Time: August 22:12 - CONCLUSION: No infiltrates seen. Rod Padilla MD PE at Discharge GENERAL: Well-developed, obese with BMI 46.2, in no acute distress. alert and orientated HEENT: Head is normocephalic without any lesions or masses noted. Facial features are symmetric. Eyes: Extraocular muscles are intact. Conjunctivae were clear. NECK: Supple without any masses. Trachea midline no deviation. No JVD, CARDIAC: Regular rhythm, regular rate. S1/S2 are heard. No murmurs gallops or rubs. LUNGS: Clear to auscultation bilaterally. No wheeze, rhonchi or rales. No use of accessory muscles on inspiration or expiration. ABDOMEN: Soft, nontender. Nondistended. Bowel sounds heard in all 4 quadrants. No organomegaly or masses. Negative rebound, negative guarding EXTREMITIES: No edema, pulses are equal bilaterally. No cyanosis or clubbing NEUROLOGY: Mood and affect appear appropriate. Cranial nerves II through XII grossly intact. Moving all extremities, speech is clear Hospital Course 62-year-old male., Who Presented to hospital because of febrile illness, chills. Patient had workup done emergency department found to have infection with influenza A. Urinary tract infection, leukocytosis. Patient was recommended hospitalization for management. Patient was started on empirical antibiotics include Levaquin, started on Tamiflu for influenza. All laboratories were performed which did indicate leukocytosis did resolve. Urinalysis was performed which did indicate a urinary tract infection in which patient states that he has had those in the past. He was started on Levaquin and is feeling much better today. Awaiting cultures for final determination. This can be followed up with his primary medical doctor. Patient is doing much better from his presenting symptoms however, he states that his back pain is worse because of the bed and chair that we have here in the hospital. He is very eager to go home. Patient wants to be discharged. Presently, the patient is clinically stable, he remained afebrile. Leukocytosis resolved. Patient is tolerating treatment with objective improvement. Will plan discharge home in stable condition. Pt Condition on Discharge: Stable Discharge Disposition: Discharge Home Discharge Time: > 30 minutes Discharge Instructions DIET: Follow Instructions for: Heart Healthy Diet Activities you can perform: Regular-No Restrictions Follow up Referrals: PCP Follow-up - 1 Week New Medications: Levofloxacin (Levaquin) 500 Mg Tablet 500 MG PO DAILY for Infection for 3 Days, #3 TAB Oseltamivir (Tamiflu) 75 Mg Cap 75 MG PO BID for Infection for 4 Days, #8 CAP Continued Medications: Amlodipine (Amlodipine) 5 Mg Tab 5 MG PO DAILY for Blood Pressure Management, #30 TAB 0 Refills Benazepril-Hydrochlorothiazide (Benazepril-Hydrochlorothiazide) 20-12.5 Mg Tab 1 TAB PO DAILY for Blood Pressure Management, #30 TAB 0 Refills Celecoxib (Celebrex) 200 Mg Cap 200 MG PO DAILY for Pain Management, CAP 0 Refills Doxycycline (Oracea) 40 Mg Cap 40 MG PO DAILY for Infection, CAP 0 Refills Finasteride (Finasteride) 5 Mg Tab 5 MG PO DAILY for Manage Prostate Problems, #30 TAB 0 Refills Do not crush. Hydrocodone-Acetaminophen (Hydrocodone-Acetaminophen) 5-325 mg Tab 1 TAB PO Q8HR PRN for PAIN, TAB 0 Refills Tamsulosin (Flomax) 0.4 Mg Cap 0.4 MG PO HS for Manage Prostate Problems, #30 CAP 0 Refills Veto Qiu Aug 31, 2017 10:01
--- NOTE | 2017-08-31 10:01 | HHI.DCPOC ---
Discharge Care Plan Diagnosis: (1) Influenza A (2) Urinary tract infection Goals to Promote Your Health * To prevent worsening of your condition and complications * To maintain your health at the optimal level Directions to Meet Your Goals Take your medications as prescribed Follow your dietary instruction Follow activity as directed Keep your appointments as scheduled Take your immunizations and boosters as scheduled If your symptoms worsen call your PCP, if no PCP go to Urgent Care Center or Emergency Room Smoking is Dangerous to Your Health. Avoid second hand smoke Call the 24-hour hour crisis hotline for domestic abuse at [facility] Aug 31, 2017 10:01
[2017-08-31] MEDS ORDERED: LEVA500T33 PO (10:03)
[2017-08-31] MEDS ORDERED: OSEL75 PO (10:03)
[2017-08-31 10:25] VITALS: RESP 18
[2017-08-31] MEDS ORDERED: PHARMACY ORDERED LAB ONE (23:45)
== END 2017-08-31 12:30 | disposition home or self-care (01) | DRG 872 ==
LOC: PHED 20:14 → PHEDA 23:55 → OBSVTOIN 23:55 → PH3B 08-30 01:16
PROVIDERS: ADMIT Hospitalist; ATTEND Hospitalist
DX: A41.9 Sepsis, unspecified organism (principal); Z68.42 Body mass index [BMI] 45.0-49.9, adult; J09.X2 Influenza due to identified novel influenza A virus with other respiratory manifestations; N18.3 Chronic kidney disease, stage 3 (moderate); L89.899 Pressure ulcer of other site, unspecified stage; E66.01 Morbid (severe) obesity due to excess calories; N39.0 Urinary tract infection, site not specified; N40.1 Benign prostatic hyperplasia with lower urinary tract symptoms; R33.8 Other retention of urine; I12.9 Hypertensive chronic kidney disease with stage 1 through stage 4 chronic kidney disease, or unspecified chronic kidney disease; M54.9 Dorsalgia, unspecified; Z88.1 Allergy status to other antibiotic agents
CPT/HCPCS: 71045; 73630; 80048; 81001; 82565; 83605; 85025; 86403; 87040; 87070; 87077; 87086; 87186; 87205; 87804; J1650; J3370; J7030; J7040; J7050